=== PATIENT | male | born 1955 | race Caucasian/White ===

== ENCOUNTER 2020-06-16 08:53 | Emergency (ER) | payer OTHER ==
[~2020-06-16 08:53] MED LIST: ASPIRIN EC81 MG PO; LOPRESSOR 25 MG25 MG PO; NAPROSYN500 MG PO; NORFLEX 100 MG100 MG PO; PREDNISONE 50 M50 MG PO; ROPINIROLE HCL1 MG PO; VIAGRA25 MG PO
[2020-06-16 09:49] LABS: RED BLOOD COUNT 4.8 M/UL (4.20-5.50); WHITE BLOOD COUNT 8.6 K/UL (4.5-11.0)
[2020-06-16 10:12] LABS: BUN/CREATININE RATIO 29 (0-10)
[2020-06-16] MEDS ORDERED: ZANAFLEX4 MG PO (11:46)
[2020-06-16] MEDS ORDERED: ANTACID CHEWAB1 EACH PO (12:49)
== END 2020-06-16 16:35 | disposition home or self-care (01) ==
LOC: ER1 08:53 → CDU 11:30 → ER1 11:30
PROVIDERS: Emergency Medicine
DX: I25.119 Atherosclerotic heart disease of native coronary artery with unspecified angina pectoris (principal); I25.2 Old myocardial infarction; I10 Essential (primary) hypertension; J44.9 Chronic obstructive pulmonary disease, unspecified; E11.9 Type 2 diabetes mellitus without complications; E78.5 Hyperlipidemia, unspecified; R11.0 Nausea; F15.10 Other stimulant abuse, uncomplicated; F10.11 Alcohol abuse, in remission; F17.200 Nicotine dependence, unspecified, uncomplicated; Z95.5 Presence of coronary angioplasty implant and graft; Z98.890 Other specified postprocedural states; Z20.822 Contact with and (suspected) exposure to COVID-19
CPT/HCPCS: 36415; 71045; 73060; 80053; 82550; 82553; 83874; 84484; 85025; 93005; 99285; G0480; U0002

== ENCOUNTER 2021-12-04 03:52 | Emergency (ER) | payer OTHER ==
[~2021-12-04 03:52] MED LIST changes: +ANTACID CHEWAB1 EACH PO; +ZANAFLEX4 MG PO
[2021-12-04] MEDS ORDERED: PROVENTIL HFA6.7 GM INH (04:18)
[2021-12-04 04:27] LABS: HEMOGLOBIN 15.6 gm/dl (14.0-17.5); RED BLOOD COUNT 4.86 M/UL (4.20-5.50); WHITE BLOOD COUNT 7.9 K/UL (4.5-11.0)
[2021-12-04 04:34] LABS: BUN/CREATININE RATIO 18 (0-10)
== END 2021-12-04 04:40 | disposition home or self-care (01) ==
LOC: ER1 03:52
PROVIDERS: Physician Assistant
DX: I10 Essential (primary) hypertension (principal); J44.9 Chronic obstructive pulmonary disease, unspecified; E78.5 Hyperlipidemia, unspecified; F17.210 Nicotine dependence, cigarettes, uncomplicated; Z95.5 Presence of coronary angioplasty implant and graft
CPT/HCPCS: 71045; 80053; 82550; 82553; 84484; 85025; 93005; 94664; 99284